=== PATIENT | female | born 1990 | race American Indian/Alaskan Native ===

== ENCOUNTER 2016-12-14 11:39 | Emergency (ER) | payer OTHER ==
[2016-12-14 11:55] VITALS: BP 149/92
--- NOTE | 2016-12-14 14:16 | Emergency Department Report ---
- General Chief Complaint: Skin/Abscess/Foreign Body Stated Complaint: VAGINAL PAIN/FEVER/CHILLS/SWEATS Time Seen by Provider: 12/14/16 13:09 Source: patient Mode of arrival: Ambulatory Limitations: No Limitations - History of Present Illness Initial Comments: Patient presents with a lump on left labia majora 3 days. She denies vaginal discharge, odor, urinary symptoms such as frequency or urgency or pain. She does admit to chills that have resolved. Denies nausea, vomiting, abdominal pain. -: Gradual Location: genitals Associated Symptoms: pain - Related Data Previous Rx's Medication Instructions Recorded Last Taken Type Ibuprofen [Motrin 800 MG tab] 800 mg PO BID PRN #20 tablet 12/14/16 Unknown Rx Sulfamethoxazole/Trimethoprim 1 each PO BID #14 tablet 12/14/16 Unknown Rx [Bactrim DS TAB] Allergies Allergy/AdvReac Type Severity Reaction Status Date / Time No Known Allergies Allergy Unverified 09/09/14 20:45 ED Review of Systems ROS: Stated complaint: VAGINAL PAIN/FEVER/CHILLS/SWEATS Other details as noted in HPI Constitutional: chills (now resolved). denies: fever Respiratory: denies: cough, shortness of breath, wheezing Cardiovascular: denies: chest pain, palpitations Gastrointestinal: denies: abdominal pain, nausea, diarrhea Genitourinary: as per HPI Musculoskeletal: denies: back pain, joint swelling, arthralgia Skin: as per HPI. denies: rash, lesions Neurological: denies: headache, weakness, paresthesias ED Past Medical Hx - Past Medical History Previous Medical History?: No - Surgical History Past Surgical History?: No - Social History Smoking Status: Never Smoker Substance Use Type: None - Medications Home Medications: Home Medications Medication Instructions Recorded Confirmed Last Taken Type Ibuprofen [Motrin 800 MG tab] 800 mg PO BID PRN #20 tablet 12/14/16 Unknown Rx Sulfamethoxazole/Trimethoprim 1 each PO BID #14 tablet 12/14/16 Unknown Rx [Bactrim DS TAB] ED Physical Exam - General Limitations: No Limitations General appearance: alert, in no apparent distress - Head Head exam: Present: atraumatic, normocephalic - Eye Eye exam: Present: normal appearance - Respiratory Respiratory exam: Present: normal lung sounds bilaterally. Absent: respiratory distress - Cardiovascular Cardiovascular Exam: Present: regular rate, normal rhythm. Absent: systolic murmur, diastolic murmur, rubs, gallop - GI/Abdominal GI/Abdominal exam: Present: soft, normal bowel sounds - External exam: Present: erythema, swelling, other (there is a cyst approx 4cm on left labia majora that is nonfluctuant, red, and ttp) - Neurological Exam Neurological exam: Present: alert, oriented X3 - Psychiatric Psychiatric exam: Present: normal affect, normal mood - Skin Skin exam: Present: warm, dry, intact, normal color. Absent: rash ED Course Vital Signs 12/14/16 11:52 Temperature 98.5 F Pulse Rate 87 Respiratory 16 Rate Blood Pressure 149/92 O2 Sat by Pulse 100 Oximetry ED Medical Decision Making - Medical Decision Making Patient presents with left bartholin's cyst, I will give Bactrim bid x 7 days and ibu 800mg for pain. I will advise her to do warm bath soaks at least 3-4 times/day to aid in drainage. Abstain from sexual intercourse until healed. i will advise her to f/u with [facility] or here in 4 days, or sooner if fever, chills, n/v, pain unrelieved by medication. - Differential Diagnosis std, cyst, abscess Critical Care Time: No Critical care attestation.: If time is entered above; I have spent that time in minutes in the direct care of this critically ill patient, excluding procedure time. ED Disposition Clinical Impression: Bartholin cyst Disposition: DISCHARGED TO HOME OR SELFCARE Is pt being admited?: No Does the pt Need Aspirin: No Condition: Stable Instructions: Bartholin Cyst (ED) Additional Instructions: I will advise her to do warm bath soaks at least 3-4 times/day to aid in drainage. Abstain from sexual intercourse until healed. i will advise her to f /u with [facility] or here in 4 days, or sooner if fever, chills, n/ v, pain unrelieved by medication. Prescriptions: Ibuprofen [Motrin 800 MG tab] 800 mg PO BID PRN #20 tablet PRN Reason: Pain Sulfamethoxazole/Trimethoprim [Bactrim DS TAB] 1 each PO BID #14 tablet Referrals: PRIMARY CARE,MD [Primary Care Provider] - 3-5 Days [facility] [Outside] - 3-5 Days Forms: Work/School Release Form(ED) Time of Disposition: 14:20
== END 2016-12-14 14:30 | disposition home or self-care (01) ==
LOC: ED 11:39
DX: N75.0 Cyst of Bartholin's gland (principal)
CPT/HCPCS: 99281

== ENCOUNTER 2018-07-20 09:35 | Emergency (ER) | payer SELFPAY ==
[2018-07-20 10:03] VITALS: BP 134/84
--- NOTE | 2018-07-20 10:58 | Emergency Department Report ---
Blank Doc - Documentation Documentation: Patient is a 27-year-old female who states that last week she had a normal menses that lasted about 5 days. Patient was free of bleeding for approximately 2 days and now has started bleeding again for past 3 days. Patient states the bleeding currently is imaging aide than normal. She states there is no chest pain shortness of breath or fatigue. Patient denies any vaginal discharge. Patient denies any dysuria. Focused exam patient has normal physical exam with a soft abdomen is nontender. Urinalysis and test be performed and the patient will be reassessed
[2018-07-20 11:31] LABS: HCG Qualitative,Urine Negative (Negative)
[2018-07-20 11:32] LABS: Bilirubin,Urine NEG (Negative); Blood,Urine MOD (Negative); Color,Urine Yellow (Yellow); Mucus,Urine FEW /HPF; Protein,Urine <15 mg/dL mg/dL (Negative)
--- NOTE | 2018-07-20 12:05 | Emergency Department Report ---
ED General Adult HPI - General Chief complaint: Abdominal Pain Stated complaint: SUDDEN BLEEDING/CRAMPING Time Seen by Provider: 07/20/18 10:46 Source: patient Mode of arrival: Ambulatory Limitations: No Limitations - History of Present Illness Initial comments: Patient is a 27-year-old female who states that last week she had a normal menses that lasted about 5 days. Patient was free of bleeding for approximately 2 days and now has started bleeding again for past 3 days. Patient states the bleeding currently is coin teller than normal. She states there is no chest pain shortness of breath or fatigue. Patient denies any vaginal discharge. Patient denies any dysuria. - Related Data Previous Rx's Medication Instructions Recorded Last Taken Type Ibuprofen [Motrin 800 MG tab] 800 mg PO BID PRN #20 tablet 12/14/16 Unknown Rx Sulfamethoxazole/Trimethoprim 1 each PO BID #14 tablet 12/14/16 Unknown Rx [Bactrim DS TAB] medroxyPROGESTERone ACETATE 5 mg PO DAILY #5 tablet 07/20/18 Unknown Rx [Provera] Allergies Allergy/AdvReac Type Severity Reaction Status Date / Time No Known Allergies Allergy Unverified 09/09/14 20:45 ED Review of Systems ROS: Stated complaint: SUDDEN BLEEDING/CRAMPING Other details as noted in HPI Comment: All other systems reviewed and negative ED Past Medical Hx - Past Medical History Previous Medical History?: No - Surgical History Past Surgical History?: No - Social History Smoking Status: Never Smoker Substance Use Type: Alcohol - Medications Home Medications: Home Medications Medication Instructions Recorded Confirmed Last Taken Type Ibuprofen [Motrin 800 MG tab] 800 mg PO BID PRN #20 tablet 12/14/16 Unknown Rx Sulfamethoxazole/Trimethoprim 1 each PO BID #14 tablet 12/14/16 Unknown Rx [Bactrim DS TAB] medroxyPROGESTERone ACETATE 5 mg PO DAILY #5 tablet 07/20/18 Unknown Rx [Provera] ED Physical Exam - General Limitations: No Limitations General appearance: alert, in no apparent distress - Head Head exam: Present: atraumatic, normocephalic - Eye Eye exam: Present: normal appearance - ENT ENT exam: Present: mucous membranes moist - Neck Neck exam: Present: normal inspection - Respiratory Respiratory exam: Present: normal lung sounds bilaterally. Absent: respiratory distress, wheezes, rales - Cardiovascular Cardiovascular Exam: Present: regular rate, normal rhythm, normal heart sounds. Absent: systolic murmur, diastolic murmur, rubs, gallop - GI/Abdominal GI/Abdominal exam: Present: soft, normal bowel sounds. Absent: distended, tenderness, guarding, rebound - Extremities Exam Extremities exam: Present: normal inspection - Back Exam Back exam: Present: normal inspection - Neurological Exam Neurological exam: Present: alert, oriented X3 - Psychiatric Psychiatric exam: Present: normal affect, normal mood - Skin Skin exam: Present: warm, dry, intact, normal color. Absent: rash ED Course Vital Signs 07/20/18 09:58 Temperature 98.1 F Pulse Rate 72 Respiratory 18 Rate Blood Pressure 134/84 O2 Sat by Pulse 100 Oximetry ED Medical Decision Making - Lab Data Lab Results 07/20/18 Range/Units 10:18 Urine Color Yellow (Yellow) Urine Turbidity Clear (Clear) Urine pH 6.0 (5.0-7.0) Ur Specific [place] 1.017 (1.003-1.030) Urine Protein <15 mg/dl (Negative) mg/dL Urine Glucose (UA) Neg (Negative) mg/dL Urine Ketones Neg (Negative) mg/dL Urine Blood Mod (Negative) Urine Nitrite Neg (Negative) Ur Reducing Substances Not Reportable Urine Bilirubin Neg (Negative) Urine Ictotest Not Reportable Urine Urobilinogen 2.0 (<2.0) mg/dL Ur Leukocyte Esterase Neg (Negative) Urine WBC (Auto) 1.0 (0.0-6.0) /HPF Urine RBC (Auto) 4.0 (0.0-6.0) /HPF U Epithel Cells (Auto) 1.0 (0-13.0) /HPF Urine Mucus Few /HPF Urine HCG, Qual Negative (Negative) - Medical Decision Making Patient is a 27-year-old [place] female who is presenting with abnormal vaginal bleeding. Patient states the bleeding is scant she has normal vital signs not believe the patient needs a workup for possible anemia at this time. Patient is not and therefore ectopic is ruled out. Patient also has no abdominal pain to time. Patient will be started on Provera and will have follow-up with [facility]. Patient is concerned about not having insurance and possible [facility] will follow-up and she is given information for [facility]. Critical care attestation.: If time is entered above; I have spent that time in minutes in the direct care of this critically ill patient, excluding procedure time. ED Disposition Clinical Impression: DUB (dysfunctional uterine bleeding) Disposition: TO HOME OR SELFCARE Is pt being admited?: No Does the pt Need Aspirin: No Condition: Stable Instructions: Dysfunctional Uterine Bleeding (ED) Prescriptions: medroxyPROGESTERone ACETATE [Provera] 5 mg PO DAILY #5 tablet Referrals: [facility] [Outside] - 3-5 Days MAC MARQUEZ MD [Staff Physician] - 3-5 Days Time of Disposition: 12:04
== END 2018-07-20 12:22 | disposition home or self-care (01) ==
LOC: ED 09:35
DX: N93.8 Other specified abnormal uterine and vaginal bleeding (principal)
CPT/HCPCS: 81001; 81025; 99283